=== PATIENT | male | born 1945 | race Caucasian/White ===

== ENCOUNTER → 2017-12-24 16:25 | Outpatient (CLI) | payer SELFPAY ==
[2017-12-24 17:03] LABS: APPEARANCE HAZY (CLEAR); BILIRUBIN NEGATIVE (NEGATIVE); COLOR YELLOW (YELLOW); GLUCOSE NEGATIVE (NEGATIVE); KETONE NEGATIVE (NEGATIVE); NITRITE POSITIVE (NEGATIVE); PROTEIN 2+ mg/dL (NEGATIVE); SPECIFIC GRAVITY 1.015 (1.005-1.020); UROBILINOGEN NORMAL (NORMAL)
[2017-12-24 17:04] LABS: EPITHELIAL CELLS 0-5 /hpf (0-5); WHITE CELLS - URINE >50 /hpf (0-5)
[2017-12-24 17:05] LABS: BACTERIA MANY /hpf (NONE SEEN)
== END | disposition home or self-care (01) ==
LOC: D.LABREF 16:25
PROVIDERS: Internal Medicine
DX: R30.0 Dysuria (principal)

== ENCOUNTER → 2018-01-14 12:26 | Outpatient (CLI) | payer OTHER ==
[2018-01-14 13:44] LABS: APPEARANCE CLEAR (CLEAR); BACTERIA NONE SEEN /hpf (NONE SEEN); BILIRUBIN NEGATIVE (NEGATIVE); COLOR YELLOW (YELLOW); EPITHELIAL CELLS 0-5 /hpf (0-5); GLUCOSE NEGATIVE (NEGATIVE); KETONE NEGATIVE (NEGATIVE); NITRITE NEGATIVE (NEGATIVE); PROTEIN TRACE mg/dL (NEGATIVE); RED CELLS - URINE NONE SEEN /hpf (0-5); SPECIFIC GRAVITY 1.015 (1.005-1.020); UROBILINOGEN NORMAL (NORMAL); WHITE CELLS - URINE 0-5 /hpf (0-5)
[2018-01-14 13:45] LABS: YEAST >1+ WITH HYPHAE /hpf (NONE SEEN)
== END | disposition home or self-care (01) ==
LOC: D.LAB 12:26
PROVIDERS: Internal Medicine
DX: N39.0 Urinary tract infection, site not specified (principal)

== ENCOUNTER → 2018-07-06 16:49 | Outpatient (CLI) | payer OTHER ==
[2018-07-06 18:20] LABS: ANION GAP 15.3 mmol/L (8-16); CARBON DIOXIDE 27.3 mmol/L (21.0-32.0); CREATININE - SERUM 1.1 mg/dL (0.6-1.3)
[2018-07-06 18:44] LABS: POTASSIUM - SERUM 2.6 mmol/L (3.5-5.1)
== END | disposition home or self-care (01) ==
LOC: D.LABREF 16:49
PROVIDERS: ATTEND Internal Medicine Nephrology
DX: E87.6 Hypokalemia (principal)